=== PATIENT | female | born 1945 | race Caucasian/White ===

== ENCOUNTER 2020-11-16 01:15 | Outpatient (CLI) | payer MEDICARE, OTHER, SELFPAY ==
[2020-11-16 18:58] LABS: SARS-CoV-2 RNA PCR Negative
== END 2020-11-16 01:16 | disposition home or self-care (01) ==
LOC: ANHCOVIDDT 01:15
PROVIDERS: PCP Family Medicine; Visit Provider Internal Medicine Gastroenterology
DX: Z01.818 Encounter for other preprocedural examination (principal); Z20.828 Contact with and (suspected) exposure to other viral communicable diseases
CPT/HCPCS: 87635; C9803; U0003

== ENCOUNTER 2020-11-20 01:15 | Day surgery (SDC) | payer MEDICARE, OTHER, SELFPAY ==
[2020-11-13 14:51] VITALS: BMI 25.0
[2020-11-20 07:22] VITALS: BP 145/69; PULSE 96; RESP 18; TEMP 36.4; O2SAT 99; BMI 23.3
[2020-11-20] MEDS: LACTATED RINGERS 1,000 ML 150 ML IV CONT (07:38)
--- NOTE | 2020-11-20 08:02 | WPDGICN ---
Assessment and Plan Assessment and plan (1) Positive colorectal cancer screening using Cologuard test: Code(s): R19.5 - Other fecal abnormalities Status: Acute Assessment and Plan: Patient has a polyp as it of colon guard test presents today for screening colonoscopy. Patient does have a prior history of colon polyps. Family history is significant her sister has had colon polyps her mother had colon cancer that may have been metastatic. Plan is for surveillance colonoscopy now and consider this at 5 year intervals in the future. (2) Family history of colonic polyps: Code(s): Z83.71 - Family history of colonic polyps Status: Acute (3) History of colon polyps: Code(s): Z86.010 - Personal history of colonic polyps Status: Acute GI Consult Note Consult date/time: 11/20/20 08:02 HPI: Candace Gonzalez is a 75 year old female Was found to have positive: Guard test. Patient states that her current weight appetite bowel movements are normal. She denies abdominal pain. She has had no bleeding. Patient's family history is significant her mother had 0 ovarian cancer and colon cancer. A sister has had colon polyps. Patient had a previous colonoscopy in 2013 that may have revealed colon polyps. Patient presents today for colonoscopy. Review of Systems Review of Systems: All systems reviewed & are unremarkable except as noted in HPI and below PMFSH Past Medical History Medical History (Updated 11/20/20 @ 08:04 by Carlos Maravilla MD) Age-related osteoporosis without current pathological fracture Chronic low back pain Essential (primary) hypertension Postural kyphosis of thoracolumbar region Prediabetes Prolapsed uterus Psoriasis Tobacco abuse Vitamin D deficiency Family History Family History Other Acute myocardial infarction Carcinoma of colon Family history of alcoholism Family history of coronary artery disease Family history of elevated blood lipids Family history of malignant neoplasm Hypertension Social History Social History Smoking packs per day: 0.5 Smoking cigarettes per day: 10.0 Years smoked: 50 Smoking pack-years: 25.00 Smoking status: Current every day smoker Tobacco type: cigarettes Second hand tobacco smoke exposure: No Alcohol intake: never Substance use: never Substance use type: does not use Living arrangements: alone Spiritual care concerns: No Meds Home Medications and Allergies Home Medications Medication Instructions Recorded Confirmed Type ibuprofen 800 mg tablet 800 mg PO TID PRN #90 tablet 11/06/19 11/13/20 Rx amlodipine 10 mg tablet 10 mg PO DAILY #90 tablet 07/18/20 11/20/20 Rx ergocalciferol (vitamin D2) 1,250 See Rx Instructions .ROUTE 08/22/20 11/20/20 Rx mcg (50,000 unit) capsule .COMPLEX #4 cap ramipril 5 mg capsule See Rx Instructions .ROUTE 10/13/20 11/13/20 Rx .COMPLEX #90 cap buspirone 5 mg tablet See Rx Instructions PO TID PRN #30 11/05/20 11/20/20 Rx tablet triamcinolone acetonide 0.1 % See Rx Instructions .ROUTE 11/05/20 11/13/20 Rx topical cream .COMPLEX #80 gm Allergies Allergy/AdvReac Type Severity Reaction Status Date / Time Sulfa (Sulfonamide Allergy Severe Swelling Verified 11/13/20 15:04 Antibiotics) latex Allergy Intermediate Rash Verified 11/13/20 15:04 erythromycin base AdvReac Intermediate Verified 11/20/20 07:29 Vital Signs Vital Signs - 24 hr 11/20/20 07:22 Temperature 97.6 F Pulse Rate 96 Respiratory Rate 18 Blood Pressure 145/69 H Pulse Oximetry 99 Exam Narrative: Exam Narrative: Physical exam reveals patient to be alert. Vital signs stable. HEENT exam unremarkable. Lungs are clear to auscultation and percussion. Heart is without murmur or extra sounds. Abdominal exam bowel sounds are present soft nontender with no
--- NOTE | 2020-11-20 08:34 | P.PNAN_ITS ---
Anes - Initial Pre Proc Eval Procedure: Operation Date: 11/20/20 08:30 Proposed Procedures p Colonoscopy - Carlos Maravilla MD Date/Time: 11/20/20 08:34 Surgeon: Carlos Maravilla MD Pre Op Diagnosis: positive cologuard, hx colon polyps Patient Data Age: 75 Gender: F Height: 5 ft Weight: 54.3 kg Last Vital Signs Temp 97.6 F 11/20/20 07:22 Pulse 96 11/20/20 07:22 Resp 18 11/20/20 07:22 BP 145/69 H 11/20/20 07:22 Pulse Ox 99 11/20/20 07:22 Allergies Allergy/AdvReac Type Severity Reaction Status Date / Time Sulfa (Sulfonamide Allergy Severe Swelling Verified 11/13/20 15:04 Antibiotics) latex Allergy Intermediate Rash Verified 11/13/20 15:04 erythromycin base AdvReac Intermediate Verified 11/20/20 07:29 Home Medications Medication Instructions Recorded Confirmed Type ibuprofen 800 mg tablet 800 mg PO TID PRN #90 tablet 11/06/19 11/13/20 Rx amlodipine 10 mg tablet 10 mg PO DAILY #90 tablet 07/18/20 11/20/20 Rx ergocalciferol (vitamin D2) 1,250 See Rx Instructions .ROUTE 08/22/20 11/20/20 Rx mcg (50,000 unit) capsule .COMPLEX #4 cap ramipril 5 mg capsule See Rx Instructions .ROUTE 10/13/20 11/13/20 Rx .COMPLEX #90 cap buspirone 5 mg tablet See Rx Instructions PO TID PRN #30 11/05/20 11/20/20 Rx tablet triamcinolone acetonide 0.1 % See Rx Instructions .ROUTE 11/05/20 11/13/20 Rx topical cream .COMPLEX #80 gm Patient hx anesthesia problems: none Family hx anesthesia problems: none PMFSH Past Medical History Medical History (Updated 11/20/20 @ 08:04 by Carlos Maravilla MD) Age-related osteoporosis without current pathological fracture Chronic low back pain Essential (primary) hypertension Postural kyphosis of thoracolumbar region Prediabetes Prolapsed uterus Psoriasis Tobacco abuse Vitamin D deficiency Family History Family History Other Acute myocardial infarction Carcinoma of colon Family history of alcoholism Family history of coronary artery disease Family history of elevated blood lipids Family history of malignant neoplasm Hypertension Social History Social History Smoking packs per day: 0.5 Smoking cigarettes per day: 10.0 Years smoked: 50 Smoking pack-years: 25.00 Smoking status: Current every day smoker Tobacco type: cigarettes Second hand tobacco smoke exposure: No Alcohol intake: never Substance use: never Substance use type: does not use Living arrangements: alone Spiritual care concerns: No Anes - Eval Final PreProcedure Day of Procedure 11/20/20 08:34 Patient weight: normal Heart: regular rate and rhythm Lungs: clear to auscultation Airway: Mallampati scale class II Neurological: alert and oriented Last oral intake: >/= 8 hours ASA classification: III Emergent: no Anesthetic plan: proceed Anesthesia type and monitoring: general GIVS and standard monitoring Informed Consent: The patient's anesthetic plan and its attendant risks and benefits were discussed with the patient/family/POA. Questions were solicited and answers provided to the satisfaction of the patient/family/POA.
[2020-11-20 08:57] VITALS: BP 124/54; PULSE 77; RESP 19; O2SAT 99
[2020-11-20 09:07] VITALS: BP 125/65; PULSE 81; RESP 15; O2SAT 99
[2020-11-20 10:51] VITALS: BP 132/66; PULSE 80; RESP 17; O2SAT 100
== END 2020-11-20 09:20 | disposition home or self-care (01) ==
PROVIDERS: PCP Family Medicine; Visit Provider Internal Medicine Gastroenterology
PROC: 0DJD8ZZ Inspection of Lower Intestinal Tract, Via Natural or Artificial Opening Endoscopic (ICD-10-PCS; CPT 45378; principal; 2020-11-20 08:30)
DX: R19.5 Other fecal abnormalities (principal); K63.5 Polyp of colon; K64.8 Other hemorrhoids; Z80.0 Family history of malignant neoplasm of digestive organs; M81.0 Age-related osteoporosis without current pathological fracture; I10 Essential (primary) hypertension; M40.205 Unspecified kyphosis, thoracolumbar region; R73.03 Prediabetes; L40.9 Psoriasis, unspecified; E55.9 Vitamin D deficiency, unspecified; F17.210 Nicotine dependence, cigarettes, uncomplicated
CPT/HCPCS: 45385; 88305; J2704; J7120

== ENCOUNTER → 2020-12-12 10:33 | Outpatient (CLI) | payer MEDICARE, OTHER, SELFPAY ==
--- NOTE | ~2020-12-12 | MM_ITS ---
EXAMINATION: MM screening [facility] BI w dash HISTORY: Screening TECHNIQUE: Craniocaudal and mediolateral oblique 3-D tomosynthesis images were obtained and synthetic 2-D images were generated. CAD analysis was submitted and interpreted. COMPARISON: No prior mammogram is available for comparison at this institution. BREAST PARENCHYMAL COMPOSITION: There are scattered areas of fibroglandular density. FINDINGS: There is no evidence of suspicious mass, calcification, or architectural distortion to sugg est malignancy in either breast. There has been no suspicious interval change. IMPRESSION: 1. No mammographic evidence of malignancy. 2. Recommend routine screening mammography in one year. BI-RADS Category 1: Negative Reviewed, dictated and finalized at location A. 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
== END ==
PROVIDERS: PCP Family Medicine; Visit Provider Family Medicine
DX: Z12.31 Encounter for screening mammogram for malignant neoplasm of breast (principal)
CPT/HCPCS: 77063; 77067

== ENCOUNTER → 2022-02-23 12:46 | Outpatient (CLI) | payer MEDICARE, OTHER, SELFPAY ==
--- NOTE | ~2022-02-23 | MM_ITS ---
EXAMINATION: MM screening [facility] BI w dash HISTORY: Screening mammogram, family history of breast cancer in her sister. TECHNIQUE: Craniocaudal and mediolateral oblique 3-D tomosynthesis images were obtained and synthetic 2-D images were generated. CAD analysis was submitted and interpreted. COMPARISON: 12/12/2020, 04/15/2019 BREAST PARENCHYMAL COMPOSITION: There are scattered areas of fibroglandular density. FINDINGS: There is no suspicious mass, calcification, or architectural distortion to suggest malignan cy in either breast. There has been no suspicious interval change. IMPRESSION: 1. No mammographic evidence of malignancy. 2. Recommend routine screening mammography in one year. BI-RADS Category 1: Negative Reviewed, dictated and finalized at location A.
== END ==
PROVIDERS: PCP Family Medicine; Visit Provider Family Medicine
DX: Z12.31 Encounter for screening mammogram for malignant neoplasm of breast (principal)
CPT/HCPCS: 77063; 77067

== ENCOUNTER 2022-09-16 10:18 | Outpatient (CLI) | payer MEDICARE, OTHER, SELFPAY ==
--- NOTE | ~2022-09-16 | CT_ITS ---
EXAMINATION: CT lung screening DATE: 09/16/2022 10:41 INDICATION: Personal history of nicotine dependence, current smoker with 50 pack year history TECHNIQUE: Computed tomography (CT) of the chest was performed without intravenous contrast. The dose -length product (DLP) was 65.10 mGy-cm. Automated exposure control and iterative reconstruction techn [employer] were employed. COMPARISON: None FINDINGS: There is mild emphysema. No suspicious pulmonary nodules are identified. There is mild depe ndent atelectasis. No pleural effusion or pneumothorax. No pathologically enlarged thoracic lymph nod es are identified. The heart size is normal. Calcified coronary artery atherosclerosis is noted. Ther e is 65 degrees thoracolumbar levoscoliosis. The gallbladder is surgically absent. IMPRESSION: 1. Lung-RADS category 1: Negative. Continue annual screening with noncontrast low-dose chest CT in 12 months. Reviewed, dictated and finalized at location A. IMPRESSION: 1. Lung-RADS category 1: Negative. Continue annual screening with noncontrast l ow-dose chest CT in 12 months.
== END 2022-09-16 10:19 | disposition home or self-care (01) ==
PROVIDERS: PCP Family Medicine; Visit Provider Physician Assistant
DX: Z12.2 Encounter for screening for malignant neoplasm of respiratory organs (principal); Z87.891 Personal history of nicotine dependence
CPT/HCPCS: 71271

== ENCOUNTER → 2023-02-02 14:36 | Outpatient (CLI) | payer MEDICARE, OTHER, SELFPAY ==
--- NOTE | ~2023-02-02 | DEXA_ITS ---
Bone Density Report Name: CARMEN LOCO Age: 77 Sex: Female Ethnicity: White Date of : 1945 Indication: osteopenia; height loss; postmenopausal Referring Provider: Genie Mujica Study: Bone densitometry was performed. Exam Date: February 02, 2023 Accession number: [id number] Bone Density: Region BMD T-score Z-score Classification AP Spine (L1, L2, L3) 0.905 -1.0 1.4 Normal Femoral Neck (Left) 0.597 -2.3 -0.2 Osteopenia Total Hip (Left) 0.632 -2.5 -0.7 Osteoporosis Femoral Neck (Right) 0.741 -1.0 1.1 Normal Total Hip (Right) 0.721 -1.8 0.0 Osteopenia Total Hip Mean 0.677 -2.2 -0.4 Osteopenia World Health Organization criteria for BMD impression classify patients as: Normal (T-score at or above -1.0), Osteopenia (T-score between -1.0 and -2.5), or Osteoporosis (T-score at or below -2.5). 10-year Fracture Risk: FRAX not reported because: Some T-score for Spine Total or Hip Total or Femoral Neck at or below -2.5 Previous Exams: Region Exam Age BMD T-score BMD Change BMD Change Date g/cm2 vs Baseline vs Previous AP Spine(L1, L2, L3) 02/02/2023 77 0.905 -1.0 -0.193* 0.017 04/15/2019 73 0.888 -1.2 -0.209* -0.081* 07/30/2012 67 0.969 -0.4 -0.128* -0.128* 01/07/2005 59 1.097 0.7 Total Hip(Left) 02/02/2023 77 0.632 -2.5 -0.334 -0.104* 04/15/2019 73 0.736 -1.7 -0.230 -0.089* 07/30/2012 67 0.825 -1.0 -0.141 -0.148* 01/07/2005 59 0.973 0.3 0.007 0.007 11/20/2002 57 0.966 0.2 Total Hip(Right) 02/02/2023 77 0.721 -1.8 -0.299 -0.036* 04/15/2019 73 0.756 -1.5 -0.263 -0.071* 07/30/2012 67 0.827 -0.9 -0.192 -0.117* 01/07/2005 59 0.945 0.0 -0.075 -0.075 11/20/2002 57 1.019 0.6 *Denotes significance at 95% confidence level, LSC for AP Spine = 0.022 g/cm2, LSC for Total Hip = 0.027 g/cm2 Clinical Information Provided by Patient: Smokes Has used the following medications: Vitamin D Patient maximum height was 64 Menopause Age: 53 No regular weight bearing exercise Does not regularly consume dairy products Drinks caffeinated beverages Onset of menses at age 15 Number of children 5 Impression: The patient has osteoporosis, based on the Left Total Hip T-score. The patient has risk factors, including:
== END ==
PROVIDERS: PCP Family Medicine; Visit Provider Physician Assistant
DX: Z78.0 Asymptomatic menopausal state (principal); M85.852 Other specified disorders of bone density and structure, left thigh; M81.0 Age-related osteoporosis without current pathological fracture; M85.851 Other specified disorders of bone density and structure, right thigh
CPT/HCPCS: 77080

== ENCOUNTER 2023-05-03 13:08 | Outpatient (CLI) | payer MEDICARE, OTHER, SELFPAY ==
--- NOTE | ~2023-05-03 | US_ITS ---
Procedure: Duplex Doppler examination of the bilateral carotids. Indication: Other specified signs/symptoms involving the secretory/respiratory system. Technique: Real time, color-flow and pulse wave Doppler examination of the bilateral carotids was performed. Findings: Henry scale ultrasonography of the right neck demonstrated scattered small common carotid artery plaqu es. There are additional small calcified plaques at the right carotid bulb. There was demonstration o f normal color-flow and Doppler waveforms within the right common, internal and external carotid pauline letty. The peak systolic velocities in the right common, internal and external carotid arteries were d emonstrated to be 96 cm/sec, 102 cm/sec and 103 cm/sec respectively. The right ICA/CCA ratio was 1.1. The proximal right internal carotid artery demonstrates 0% stenosis relative to the normal distal art karley lumen diameter. Henry scale sonography of the left neck demonstrated small plaques at the left carotid bulb. There was demonstration of normal color-flow and wave forms within the left common, internal and external aguayo tid arteries. The peak systolic velocities in the left common, internal and external carotid arteries were demonstrated to be 97cm/sec, 61 cm/sec and 95 cm/sec respectively. The left ICA/CCA ratio was 0 .6. The proximal left internal carotid artery demonstrates 0% stenosis relative to the normal distal artery lumen diameter. There was antegrade flow demonstrated in the bilateral vertebral arteries. Impression: No hemodynamically significant stenosis of the bilateral internal carotid arteries. Antegrade flow in the bilateral vertebral arteries. Note: The methodology used is an indirect measurement validated against a direct method (such as the NASCET criteria) that compares diameters at the stenosis to the distal ICA. Reviewed, dictated and finalized at location . Impression: No hemodynamically significant stenosis of the bilateral internal carotid arter ies. Antegrade flow in the bilateral vertebral arteries. Note: The methodology used is an indirect measurement validated against a direct meth od (such as the NASCET criteria) that compares diameters at the stenosis to the distal ICA.
== END 2023-05-03 13:09 | disposition home or self-care (01) ==
PROVIDERS: PCP Family Medicine; Visit Provider Family Medicine
DX: R09.89 Other specified symptoms and signs involving the circulatory and respiratory systems (principal)
CPT/HCPCS: 93880

== ENCOUNTER → 2023-08-04 08:49 | Outpatient (CLI) | payer MEDICARE, OTHER, SELFPAY ==
--- NOTE | ~2023-08-04 | MMUS_ITS ---
EXAMINATION: MM diagnostic anatoly BI w dash, US breast RT complete HISTORY: Right breast erythema, pain for 3 weeks, white milky nipple discharge. Swelling of right axi llary node, diminished with antibiotic treatment. TECHNIQUE: ML, MLO and CC 3-D tomosynthesis images of both breasts were performed and synthetic 2-D i mages were generated. CAD analysis was submitted and interpreted. High resolution complete right carlyn st ultrasound examination: All 4 quadrants and subareolar areas was performed. COMPARISON: 02/23/2022, 12/12/2020, 04/15/2019 bilateral screening mammogram examinations BREAST PARENCHYMAL COMPOSITION: There are scattered areas of fibroglandular density. FINDINGS: MAMMOGRAPHIC FINDINGS: No suspicious mass or architectural distortion, malignant calcification, skin thickening or retractio n or significant new or developing density is detected. ULTRASOUND: No suspicious mass or shadowing suspicious vascularity is detected. IMPRESSION: 1. No mammographic or sonographic evidence of malignancy 2. Routine annual mammographic screening is recommended. BI-RADS Category 1: Negative Reviewed, dictated and finalized at location A. IMPRESSION: 1. No mammographic or sonographic evidence of malignancy 2. Routine annual mammographic screening is recommended. BI-RADS Category 1: Negative
== END ==
PROVIDERS: PCP Family Medicine; Visit Provider Obstetrics & Gynecology Gynecology
DX: N61.0 Mastitis without abscess (principal)
CPT/HCPCS: 76641; 77062; 77066; G0279

== ENCOUNTER → 2023-08-30 10:40 | Outpatient (CLI) | payer MEDICARE, OTHER, SELFPAY ==
--- NOTE | ~2023-08-30 | US_ITS ---
EXAMINATION: US breast RT limited HISTORY: Mastitis without abscess of the right breast, right breast pain TECHNIQUE: Limited right breast ultrasound was performed. FINDINGS: There is no evidence of focal abnormal cystic or solid mass in the vicinity of the patient' s reported right breast pain. There are normal-appearing lymph nodes in the right axillary region. IMPRESSION: No specific sonographic correlate is identified for the patient's reported right breast pain. No evid ence of mastitis. Further evaluation at this time should be based on clinical assessment. Continued f ollow-up physical examination is recommended. BI-RADS Category 1: Negative Reviewed, dictated and finalized at location A. IMPRESSION: No specific sonographic correlate is identified for the patient's reported righ t breast pain. No evidence of mastitis. Further evaluation at this time should be based on clinical assessment. Continued follow-up physical examination is re commended. BI-RADS Category 1: Negative
== END ==
PROVIDERS: PCP Obstetrics & Gynecology Gynecology; Visit Provider Surgery
DX: N61.0 Mastitis without abscess (principal)
CPT/HCPCS: 76642

== ENCOUNTER 2024-08-07 10:34 | Outpatient (CLI) | payer MEDICARE, SELFPAY ==
--- NOTE | ~2024-08-07 | MM_ITS ---
EXAMINATION: MM screening anatoly BI w dash HISTORY: Screening mammogram, family history of breast cancer in her sister. TECHNIQUE: Craniocaudal and mediolateral oblique 3-D tomosynthesis images were obtained and synthetic 2-D images were generated. CAD analysis was submitted and interpreted. COMPARISON: 08/04/2023, 02/23/2022, 12/12/2020, 04/15/2019 BREAST PARENCHYMAL COMPOSITION:Not Dense. There are scattered areas of fibroglandular density. FINDINGS: No suspicious mass, calcification, or architectural distortion are identified in either jay ast to suggest malignancy. There has been no suspicious interval change. IMPRESSION: No mammographic evidence of malignancy. Recommend routine screening mammography in one year. BI-RADS Category 1: Negative Reviewed, dictated and finalized at location .
== END 2024-08-07 10:35 | disposition home or self-care (01) ==
PROVIDERS: PCP Physician Assistant Surgical; Visit Provider Physician Assistant Surgical
DX: Z12.31 Encounter for screening mammogram for malignant neoplasm of breast (principal)
CPT/HCPCS: 77063; 77067